=== PATIENT | female | born 1960 | race Caucasian/White ===

== ENCOUNTER 2020-10-28 13:01 | Emergency (ER) | payer OTHER ==
[2020-10-28] MEDS ORDERED: PREDNISONE 20MG20 MG PO (14:05)
[2020-10-28] MEDS ORDERED: CYCLOBENZAPRINE10 MG PO (14:05)
== END 2020-10-28 15:23 | disposition home or self-care (01) ==
LOC: FER 13:01
DX: S39.012A Strain of muscle, fascia and tendon of lower back, initial encounter (principal); Z88.0 Allergy status to penicillin; Z88.1 Allergy status to other antibiotic agents; X58.XXXA Exposure to other specified factors, initial encounter
CPT/HCPCS: 96372; 99283; J1100; J1885; J2270